=== PATIENT | female | born 1960 | race Caucasian/White ===

== ENCOUNTER → 2017-09-30 | Emergency (ER) | payer OTHER ==
[~2017-09-30] VITALS: Ht 170.2 cm; Wt 59.9 kg
[~2017-09-30] MED LIST: CLONAZEPAM1 MG; SYNTHROID88 MCG
== END | disposition left against medical advice (07) ==
LOC: ER 13:24
DX: Z53.20 Procedure and treatment not carried out because of patient's decision for unspecified reasons (principal)